=== PATIENT | female | born 1965 | race Caucasian/White ===

== ENCOUNTER 2017-06-24 10:53 | Emergency (ER) | payer MEDICARE, MEDICAID ==
[~2017-06-24] VITALS: Ht 152.4 cm; Wt 81.0 kg
[~2017-06-24 10:53] MED LIST: EZET10TA14 PO; FENO135C PO; FLUT16SP26 BOTHNARES; GLUC-131 PO; LACO100T2 PO; LAMO200T PO; LEVO75TA7 PO; LUBI8CAP PO; NABU500T2 PO; OMEG1CAP PO; OMEP20TA5 PO; SIMV40TA4 PO; SITA1TAB6 PO; TOP100T PO
[2017-06-24 11:29] VITALS: BP 147/47
[2017-06-24] MEDS ORDERED: BENZ-16 PO (12:53)
== END 2017-06-24 13:02 | disposition home or self-care (01) ==
LOC: ER 10:55
DX: R05 Cough (principal); G62.9 Polyneuropathy, unspecified; I25.10 Atherosclerotic heart disease of native coronary artery without angina pectoris; E78.00 Pure hypercholesterolemia, unspecified; J45.909 Unspecified asthma, uncomplicated; K21.9 Gastro-esophageal reflux disease without esophagitis; E11.9 Type 2 diabetes mellitus without complications; E03.9 Hypothyroidism, unspecified; M19.90 Unspecified osteoarthritis, unspecified site; Z90.49 Acquired absence of other specified parts of digestive tract; Z90.710 Acquired absence of both cervix and uterus; Z98.890 Other specified postprocedural states; Z56.0 Unemployment, unspecified; Z88.1 Allergy status to other antibiotic agents; Z88.5 Allergy status to narcotic agent; Z79.899 Other long term (current) drug therapy
CPT/HCPCS: 71046; 99284

== ENCOUNTER 2020-07-13 09:42 | Emergency (ER) | payer MEDICARE, MEDICAID ==
[~2020-07-13] VITALS: Ht 152.4 cm; Wt 76.8 kg
[~2020-07-13 09:42] MED LIST changes: -EZET10TA14 PO; +EZET10TA6 PO; -LAMO200T PO; +LAMO200T10 PO; +NABU-134 PO; -NABU500T2 PO; +NITR100C6 PO; +SIMV-45 PO; -SIMV40TA4 PO
[2020-07-13 10:03] VITALS: BP 151/91
[2020-07-13] MEDS ORDERED: LIDO700A32 TOP (12:43)
[2020-07-13] MEDS ORDERED: HYDR-3965 PO (12:49)
== END 2020-07-13 13:05 | disposition home or self-care (01) ==
LOC: ER 09:43
DX: S20.212A Contusion of left front wall of thorax, initial encounter (principal); M79.674 Pain in right toe(s); R07.81 Pleurodynia; E11.42 Type 2 diabetes mellitus with diabetic polyneuropathy; I25.10 Atherosclerotic heart disease of native coronary artery without angina pectoris; E78.00 Pure hypercholesterolemia, unspecified; J45.909 Unspecified asthma, uncomplicated; K21.9 Gastro-esophageal reflux disease without esophagitis; E03.9 Hypothyroidism, unspecified; M19.90 Unspecified osteoarthritis, unspecified site; F41.9 Anxiety disorder, unspecified; F32.9 Major depressive disorder, single episode, unspecified; Z86.69 Personal history of other diseases of the nervous system and sense organs; Z87.440 Personal history of urinary (tract) infections; Z90.89 Acquired absence of other organs; Z90.710 Acquired absence of both cervix and uterus; Z98.890 Other specified postprocedural states; Z60.2 Problems related to living alone; Z56.0 Unemployment, unspecified; Z88.5 Allergy status to narcotic agent; Z88.1 Allergy status to other antibiotic agents; Z88.8 Allergy status to other drugs, medicaments and biological substances; Z79.899 Other long term (current) drug therapy; W19.XXXA Unspecified fall, initial encounter; Y93.89 Activity, other specified; Y92.89 Other specified places as the place of occurrence of the external cause; Y99.8 Other external cause status
CPT/HCPCS: 71101; 73630; 99284

== ENCOUNTER 2021-04-22 10:05 | Outpatient (CLI) | payer MEDICARE, MEDICAID ==
[~2021-04-22 10:05] MED LIST changes: +LIDO700A32 TOP; -NABU-134 PO; +NABU-139 PO; -OMEG1CAP PO; +OMEG1CAP61 PO
== END 2021-04-22 23:59 | disposition home or self-care (01) ==
LOC: RAD 10:05
PROVIDERS: ATTEND Psychiatry & Neurology Neurology
DX: R94.01 Abnormal electroencephalogram [EEG] (principal); G40.009 Localization-related (focal) (partial) idiopathic epilepsy and epileptic syndromes with seizures of localized onset, not intractable, without status epilepticus
CPT/HCPCS: 95816

== ENCOUNTER 2025-01-20 16:52 | Emergency (ER) | payer MEDICARE, MEDICAID ==
[~2025-01-20] VITALS: Ht 152.4 cm; Wt 70.5 kg
[~2025-01-20 16:52] MED LIST changes: +LIDO-52 TOP; -LIDO700A32 TOP; +OMEP20TA43 PO; -OMEP20TA5 PO
[2025-01-20 16:57] VITALS: TEMP 96.9
--- NOTE | 2025-01-20 18:03 | RADIOLOGY REPORT ---
Indication: left hip pain after fall Technique: DI HIP UNILATERAL 2 VIEWSHIP 2VWS Comparison: None FINDINGS/IMPRESSION: No radiographic evidence for acute fracture or dislocation. There are [id number]-[id number] degenerate changes of the bilateral hips. Zeef-[id number]-[id number] bilateral sacroiliac degenerative joint disease.
--- NOTE | 2025-01-20 18:26 | Physician Documentation ---
History of Present Illness ~ Chief Complaint: Mechanical Fall Stated Complaint: HIP PAIN/ FALL Time Seen by MD: 18:25 Primary Medical Doctor: Jamaal ANDREWS Patient presents to the emergency room after tripping and falling on her left hip. Patient states she is walking and she simply tripped which she does often. She says she typically falls face 1st onto outstretched hands but this time landed directly on her left hip. She has not had anything for pain. She states she is unable to bear weight at this time. Tetanus within 5 Years?: Yes Medication Reconciliation Allergies: Coded Allergies: clarithromycin (Verified Allergy, Unknown, 01/20/25) codeine (Verified Allergy, Unknown, NAUSEA, 01/20/25) hydrocodone bit (Verified Allergy, Unknown, NAUSEA, 01/20/25) Scheduled Ezetimibe (Zetia), 1 TABLET PO DAILY, (Reported) Fenofibric Acid (Choline) (Trilipix), 1 CAP PO DAILY, (Reported) Gluc/Neil-Msm#2/C/D3/Mak/Born (Jxxxibtiaa-Uojsifkdypx-Nhv Tab), 1 EACH PO DAILY Lacosamide (Vimpat), 100 MG PO BID, (Reported) Lamotrigine (Lamotrigine), 1 TABLET PO BID, (Reported) Levothyroxine Sodium (Levothyroxine Sodium), 75 MCG PO DAILY, (Reported) Lidocaine (Lidoderm), 1 PATCH TOP Q12H PRN Lubiprostone (Amitiza), 1 CAP PO BID, (Reported) Nabumetone (Nabumetone), 500 MG PO BID, (Reported) Nitrofurantoin Monohyd/M-Cryst (Macrobid 100 mg Capsule), 1 CAP PO Q12H [place]-3 Acid Ethyl Esters* (Lovaza*), 2 GM PO BID, (Reported) Omeprazole (Omeprazole), 1 TABLET PO DAILY, (Reported) Simvastatin (Simvastatin), 40 MG PO HS, (Reported) Sitagliptin Phos/Metformin HCl (Janumet 50-1,000 mg Tablet), 1 TABLET PO DAILY, (Reported) Topiramate (Topamax), 200 MG PO BID, (Reported) Scheduled PRN Fluticasone Propionate (Fluticasone Propionate), 2 SPRAYS BOTHNARES DAILY PRN for allergies, (Reported) Past Medical History Past Medical History: Peripheral Neuropathy, Seizures, Angina, Coronary Artery Disease, High Cholesterol, Asthma, GERD, UTI, Diabetes, Hypothyroidism, Arthritis, Anxiety, Depression Past Surgical History: appendectomy, hysterectomy, orthopedic surgeries Patient History: (COPD) Chronic obstructive lung disease Alcohol Use: None Drug Use: none Lives with: Alone Lives In: Home Occupation: unemployed Review of Systems ROS All review of systems negative except as per HPI Physical Exam Vital Signs: Temperature: 96.9, Source: Temporal, Heart Rate: 90, Respiratory Rate: 16, BP: 177/84, Pulse Oximetry: 99, Weight: 70.500 Oxygen Flow Rate: 0 Physical Exam General: Patient is awake, alert, oriented x4 in no acute distress Head: Normocephalic and atraumatic. Eyes: Conjunctival normal. EOMI. PERRL. ENT: Mucous membranes moist. Neck: Supple, trachea is midline. Chest: Clear to auscultation bilaterally without rales, rhonchi, or wheezes. There is no accessory muscle use or retractions. Cardiac: RRR without murmurs, gallops, or rubs. Abd: Soft, nondistended, nontender, with normoactive bowel sounds. No guarding, rebound, or rigidity. Extremities: Tenderness to left lateral hip. Bilateral lower extremities neurovascularly intact Progress Results/Orders Results/Orders Completed Orders - KARL RICE MD Acetaminophen 325mg Tablet (Tylenol Tabl (01/20/25 18:30) Ketorolac Trometh 30mg/Ml Vial (Toradol (01/20/25 18:35) Medications Received in ER Medications (Trade) Dose Ordered Sig/Ayde Route PRN Reason Start Time Stop Time Status Last Admin Dose Admin (Tylenol tablet) 975 mg ONCE ONCE PO 01/20/25 18:30 01/20/25 18:33 DC 01/20/25 18:49 975 MG (Toradol inj. 30mg/ml) 30 mg ONCE ONCE IM 01/20/25 18:35 01/20/25 18:36 DC 01/20/25 18:49 30 MG Vital Signs 01/20/25 01/20/25 01/20/25 01/20/25 16:57 18:49 18:55 19:48 Temp 96.9 Pulse 90 Resp 16 18 18 18 B/P (MAP) 177/84 Pulse Ox 99 O2 Flow Rate 0 Medical Decision Making Additional information obtaine: N/A Findings Patient presents to the emergency room with fall as per HPI. Differentials include but are not limited to fractures, dislocations, soft tissue injury. X- ray is reassuring as she has passed the road test. Differential Dx:Considerations: Include: Closed head injury Departure Disposition: HOME / SELF CARE / HOMELESS Impression: Primary Impression: Fall Condition: Stable Discharge Instructions: Fall Prevention in the Home, Adult, Ipnv-jx-Knnc Additional Instructions: Ibuprofen and Tylenol together for pain. Referrals: NO PRIMARY CARE PROVIDER (PCP) Signature Scribe Signature: No scribe Attestation: The note accurately reflects work and decisions made by me.Karl Rice MD 01/20/25 20:20 KARL RICE MD Jan 20, 2025 18:26
[2025-01-20] MEDS ORDERED: ketorolac trometh 15mg/ml vial 15 MG/ML ML IM ONE (18:30)
[2025-01-20] MEDS: ketorolac trometh 30MG/ML vial 30 MG/ML VIAL IM ONE (18:49)
[2025-01-20 20:33] VITALS: BP 145/87; PULSE 87; RESP 14; O2SAT 94
== END 2025-01-20 20:51 | disposition home or self-care (01) ==
LOC: ER 16:52
DX: M25.552 Pain in left hip (principal); E03.9 Hypothyroidism, unspecified; K21.9 Gastro-esophageal reflux disease without esophagitis; F41.9 Anxiety disorder, unspecified; F32.A Depression, unspecified; E11.42 Type 2 diabetes mellitus with diabetic polyneuropathy; E78.00 Pure hypercholesterolemia, unspecified; I25.10 Atherosclerotic heart disease of native coronary artery without angina pectoris; J44.9 Chronic obstructive pulmonary disease, unspecified; M19.90 Unspecified osteoarthritis, unspecified site; Z88.1 Allergy status to other antibiotic agents; Z88.5 Allergy status to narcotic agent; Z90.49 Acquired absence of other specified parts of digestive tract; Z90.710 Acquired absence of both cervix and uterus; W01.0XXA Fall on same level from slipping, tripping and stumbling without subsequent striking against object, initial encounter; Y93.89 Activity, other specified; Y92.89 Other specified places as the place of occurrence of the external cause; Y99.8 Other external cause status
CPT/HCPCS: 73502; 96372; 99284; J1885